=== PATIENT | male | born 1930 | race Caucasian/White ===

== ENCOUNTER 2017-12-05 08:35 | Inpatient (IN) ==
[2017-12-05] MEDS ORDERED: ONDANSETRON 4 MG/2 ML VIAL IV STA (09:50)
[2017-12-05] MEDS ORDERED: MORPHINE 2 MG/1 ML SYRINGE IV STA (09:50)
[2017-12-05] MEDS ORDERED: ASPIRIN 325 MG TABLET PO STA (09:50)
[2017-12-05 10:17] LABS: Basophils % 0.4 % (0.0-0.8); Eosinophils # 0.1 10*3/uL (0.0-0.87); Eosinophils % 1.1 % (0.00-10.9); Hematocrit 44.9 VOL% (42.0-52.0); Hemoglobin 14.4 GM/DL (14.0-18.0); Immature Granulocytes % 0.3 %; Immature Granulocytes Absolute 0.02 #; Lymphocytes # 2.1 10*3/uL (1.4-4.0); Lymphocytes % 29.6 % (21.2-54.2); Mean Corpuscular HGB Conc 32.1 GM/DL (32-36); Mean Corpuscular Hemoglobin 28 PG (27-34); Mean Corpuscular Volume 87.4 FL (87-102); Mean Platelet Volume 11.6 FL (9.6-12.0); Monocytes # 0.6 10*3/uL (0.11-0.8); Neutrophils # 4.3 10*3/uL (1.4-7.4); Neutrophils % 60.6 % (38.7-73.9); Platelet Count 161 T/CUMM (130-400); Red Blood Count 5.14 MC/CUMM (3.8-5.5); Red Cell Distribution Width 12.9 % (9.3-17.3); White Blood Count 7.1 T/CUMM (4-12)
[2017-12-05 10:23] LABS: PT Patient Result 10.7 SECS
[2017-12-05] MEDS ORDERED: ONDANSETRON 4 MG/2 ML VIAL ONE (10:32)
[2017-12-05] MEDS ORDERED: MORPHINE 2 MG/1 ML SYRINGE ONE (10:32)
[2017-12-05] MEDS ORDERED: ASPIRIN 325 MG TABLET ONE (10:33)
[2017-12-05 10:35] LABS: Alanine Aminotransferase 15 U/L (16-61); Albumin 3.6 G/DL (3.4-5.0); Alkaline Phosphatase 54 U/L (45-117); Aspartate Amino Transferase 16 U/L (0-37); Blood Urea Nitrogen 24 MG/DL (7-18); Glucose 152 MG/DL (74-106); Magnesium 2.1 MG/DL (1.8-2.4); Potassium 4.1 MMOL/L (3.5-5.1); Sodium 143 MMOL/L (136-145); Total Protein 6.6 G/DL (6.4-8.3); Troponin I Only < 0.015 NG/ML (0.00-0.045)
[2017-12-05 11:01] LABS: Apearance,Urine CLEAR (Clear); Bilirubin,Urine Negative (Negative); Blood, Urine Negative (Negative); Glucose,Urine (UA) Negative (Negative); Ketones,Urine Negative (Negative); Mucus,Urine Occasional /LPF (Occasional); Nitrite,Urine Negative (Negative); Protein,Urine Negative; RBC,Urine 1 /HPF (0-4); Urine Color Yellow (Yellow); Urine Urobilinogen < 2.0 EU/DL (0.2-1.0); WBC,Urine 9 /HPF (0-6)
[2017-12-05] MEDS ORDERED: cefTRIAXone 1,000 MG in SODIUM CHLORIDE 0.9% 100 ML IV STA (12:27)
[2017-12-05] MEDS ORDERED: cefTRIAXone 1,000 MG VIAL ONE (12:39)
[2017-12-05] MEDS ORDERED: ONDANSETRON 4 MG/2 ML VIAL IV PRN (15:28)
[2017-12-05] MEDS ORDERED: MORPHINE 2 MG/1 ML SYRINGE IV PRN (15:28)
[2017-12-05] MEDS: SODIUM CHLORIDE 0.9% 1,000 ML IV SCH (15:53)
[2017-12-05 20:47] LABS: Troponin I Only < 0.015 NG/ML (0.00-0.045)
[2017-12-05] MEDS: ENOXAPARIN 40 MG/0.4 ML SYRINGE SUBCUT SCH (21:05)
[2017-12-05] MEDS: DOCUSATE SODIUM 100 MG CAPSULE PO SCH (21:05)
[2017-12-05] MEDS: ACETAMINOPHEN 325 MG TABLET PO PRN (21:18)
[2017-12-06 05:23] LABS: Basophils % 0.4 % (0.0-0.8); Eosinophils # 0.2 10*3/uL (0.0-0.87); Eosinophils % 2.1 % (0.00-10.9); Hematocrit 40.1 VOL% (42.0-52.0); Hemoglobin 13.6 GM/DL (14.0-18.0); Immature Granulocytes % 0.3 %; Immature Granulocytes Absolute 0.02 #; Lymphocytes # 2.4 10*3/uL (1.4-4.0); Lymphocytes % 33.1 % (21.2-54.2); Mean Corpuscular HGB Conc 33.9 GM/DL (32-36); Mean Corpuscular Hemoglobin 29 PG (27-34); Mean Platelet Volume 11.5 FL (9.6-12.0); Monocytes # 0.7 10*3/uL (0.11-0.8); Monocytes % 9.2 % (1.7-12.7); Neutrophils % 54.9 % (38.7-73.9); Platelet Count 147 T/CUMM (130-400); Red Blood Count 4.72 MC/CUMM (3.8-5.5); White Blood Count 7.2 T/CUMM (4-12)
[2017-12-06 06:06] LABS: Alanine Aminotransferase < 6 U/L (16-61); Albumin 3.2 G/DL (3.4-5.0); Alkaline Phosphatase 50 U/L (45-117); Aspartate Amino Transferase 13 U/L (0-37); Blood Urea Nitrogen 24 MG/DL (7-18); Calcium 8.9 MG/DL (8.5-10.1); Cholesterol 111 MG/DL (50-200); Glucose 109 MG/DL (74-106); HDL Cholesterol 30 MG/DL (40-60); Osmolality,Calculated 292.7 MOS/KG (273-304); Potassium 4.4 MMOL/L (3.5-5.1); Sodium 145 MMOL/L (136-145); Total Protein 5.7 G/DL (6.4-8.3); Triglycerides 135 MG/DL (2-150)
[2017-12-06] MEDS: PANTOPRAZOLE 40 MG TABLET PO SCH (08:29)
[2017-12-06] MEDS: DOCUSATE SODIUM 100 MG CAPSULE PO SCH ×2 (08:29→20:56)
[2017-12-06] MEDS ORDERED: cefTRIAXone 1,000 MG in SYRINGE 1 EACH IV SCH (12:00)
[2017-12-06] MEDS: SODIUM CHLORIDE 0.9% 1,000 ML IV SCH ×2 (13:59→20:50)
[2017-12-06] MEDS ORDERED: traMADol 50 MG TABLET PO PRN (14:25)
[2017-12-06 15:27] LABS: Apearance,Urine CLEAR (Clear); Bilirubin,Urine Negative (Negative); Blood, Urine Negative (Negative); Glucose,Urine (UA) Negative (Negative); Ketones,Urine Negative (Negative); Mucus,Urine Occasional /LPF (Occasional); Nitrite,Urine Negative (Negative); Protein,Urine Negative; Urine Color Straw (Yellow); Urine Specific Gravity 1.011 (1.001-1.035); Urine Urobilinogen < 2.0 EU/DL (0.2-1.0); WBC,Urine 4 /HPF (0-6)
[2017-12-06] MEDS: MULTIVITAMIN (CENTRUM) TABLET PO SCH (15:33)
[2017-12-06] MEDS: METOPROLOL TARTRATE 25 MG TABLET PO SCH ×2 (15:34→20:56)
[2017-12-06] MEDS: CLOPIDOGREL 75 MG TABLET PO SCH (15:34)
[2017-12-06] MEDS: ATORVASTATIN 40 MG TABLET PO SCH (15:34)
[2017-12-06] MEDS: ASPIRIN EC 81 MG TABLET PO SCH (15:34)
[2017-12-06] MEDS ORDERED: TAMSULOSIN 0.4 MG CAPSULE PO SCH (18:00)
[2017-12-06] MEDS: ACETAMINOPHEN 325 MG TABLET PO PRN (20:55)
[2017-12-06] MEDS: ENOXAPARIN 40 MG/0.4 ML SYRINGE SUBCUT SCH (20:55)
[2017-12-07 06:11] LABS: Basophils % 0.4 % (0.0-0.8); Eosinophils # 0.2 10*3/uL (0.0-0.87); Eosinophils % 2.7 % (0.00-10.9); Hematocrit 39.8 VOL% (42.0-52.0); Hemoglobin 12.8 GM/DL (14.0-18.0); Immature Granulocytes % 0.3 %; Immature Granulocytes Absolute 0.02 #; Lymphocytes # 2.6 10*3/uL (1.4-4.0); Lymphocytes % 34.8 % (21.2-54.2); Mean Corpuscular HGB Conc 32.2 GM/DL (32-36); Mean Corpuscular Hemoglobin 28 PG (27-34); Mean Platelet Volume 11.6 FL (9.6-12.0); Monocytes # 0.7 10*3/uL (0.11-0.8); Neutrophils % 52.8 % (38.7-73.9); Platelet Count 150 T/CUMM (130-400); Red Blood Count 4.63 MC/CUMM (3.8-5.5); Red Cell Distribution Width 13.1 % (9.3-17.3); White Blood Count 7.5 T/CUMM (4-12)
[2017-12-07 06:28] LABS: Magnesium 2.3 MG/DL (1.8-2.4); Potassium 4.2 MMOL/L (3.5-5.1)
[2017-12-07 08:19] VITALS: BP 166/85
[2017-12-07] MEDS: DOCUSATE SODIUM 100 MG CAPSULE PO SCH (08:53)
[2017-12-07] MEDS: CLOPIDOGREL 75 MG TABLET PO SCH (08:53)
[2017-12-07] MEDS: METOPROLOL TARTRATE 25 MG TABLET PO SCH (08:53)
[2017-12-07] MEDS: MULTIVITAMIN (CENTRUM) TABLET PO SCH (08:53)
[2017-12-07] MEDS: ATORVASTATIN 40 MG TABLET PO SCH (08:53)
[2017-12-07] MEDS: PANTOPRAZOLE 40 MG TABLET PO SCH (08:53)
[2017-12-07] MEDS: ASPIRIN EC 81 MG TABLET PO SCH (08:53)
[2017-12-07] MEDS ORDERED: POLYETHYLENE GLYCOL POWDER 17 GM PACK PO SCH (09:00)
[2017-12-08 04:16] LABS: Free PSA/PSA Ratio 0.2 ratio
== END 2017-12-07 09:40 | disposition home or self-care (01) | DRG 641 ==
LOC: N.ED 08:35 → N.EDINP 12:29 → N.2E 15:27
PROVIDERS: ADMIT Family Medicine; ATTEND Family Medicine

== ENCOUNTER 2018-01-10 07:59 | Inpatient (IN) ==
[2018-01-10] MEDS ORDERED: SODIUM CHLORIDE 0.9% 500 ML IV STA (09:10)
[2018-01-10] MEDS ORDERED: ONDANSETRON 4 MG/2 ML VIAL IV STA (09:10)
[2018-01-10] MEDS ORDERED: PANTOPRAZOLE 40 MG VIAL IV STA (09:10)
[2018-01-10] MEDS ORDERED: ONDANSETRON 4 MG/2 ML VIAL ONE ×2 (09:26→12:45)
[2018-01-10] MEDS ORDERED: PANTOPRAZOLE 40 MG VIAL IV ONE (09:26)
[2018-01-10 09:31] LABS: Basophils % 0.2 % (0.0-0.8); Eosinophils % 0.3 % (0.00-10.9); Hematocrit 39.6 VOL% (42.0-52.0); Hemoglobin 13.1 GM/DL (14.0-18.0); Immature Granulocytes % 0.6 %; Immature Granulocytes Absolute 0.07 #; Lymphocytes # 2.3 10*3/uL (1.4-4.0); Lymphocytes % 18.6 % (21.2-54.2); Mean Corpuscular HGB Conc 33.1 GM/DL (32-36); Mean Corpuscular Hemoglobin 28 PG (27-34); Mean Corpuscular Volume 83.9 FL (87-102); Mean Platelet Volume 11.5 FL (9.6-12.0); Monocytes # 0.8 10*3/uL (0.11-0.8); Monocytes % 6.7 % (1.7-12.7); Neutrophils # 8.9 10*3/uL (1.4-7.4); Neutrophils % 73.6 % (38.7-73.9); Platelet Count 178 T/CUMM (130-400); Red Blood Count 4.72 MC/CUMM (3.8-5.5); Red Cell Distribution Width 13.9 % (9.3-17.3); White Blood Count 12.1 T/CUMM (4-12)
[2018-01-10 09:48] LABS: Apearance,Urine Slightly Hazy (Clear); Bacteria,Urine Few /HPF (Few); Bilirubin,Urine Negative (Negative); Blood, Urine Moderate mg/dL (Negative); Glucose,Urine (UA) Negative (Negative); Ketones,Urine Negative (Negative); Mucus,Urine Occasional /LPF (Occasional); Nitrite,Urine Negative (Negative); Protein,Urine Negative; RBC,Urine 101 /HPF (0-4); Urine Color Yellow (Yellow); Urine Specific Gravity 1.012 (1.001-1.035); Urine Urobilinogen < 2.0 EU/DL (0.2-1.0); WBC,Urine 26 /HPF (0-6)
[2018-01-10 09:53] LABS: Lactic Acid 1.5 MMOL/L (0.4-2.0)
[2018-01-10 09:56] LABS: Alanine Aminotransferase 17 U/L (16-61); Albumin 2.5 G/DL (3.4-5.0); Alkaline Phosphatase 101 U/L (45-117); Amylase 51 U/L (25-115); Aspartate Amino Transferase 19 U/L (0-37); Blood Urea Nitrogen 46 MG/DL (7-18); Calcium 8.8 MG/DL (8.5-10.1); Glucose 122 MG/DL (74-106); Osmolality,Calculated 291.4 MOS/KG (273-304); Potassium 4.3 MMOL/L (3.5-5.1); Sodium 140 MMOL/L (136-145); Total Protein 5.8 G/DL (6.4-8.3); Troponin I Only < 0.015 NG/ML (0.00-0.045)
[2018-01-10] MEDS ORDERED: LEVOFLOXACIN INJ 750 MG in PREMIX 1 EACH IV STA (10:15)
[2018-01-10] MEDS ORDERED: ENOXAPARIN 80 MG/0.8 ML SYRINGE SUBCUT STA (10:40)
[2018-01-10] MEDS ORDERED: LEVOFLOXACIN INJ 150 ML IV ONE (11:22)
[2018-01-10] MEDS ORDERED: ENOXAPARIN 80 MG/0.8 ML SYRINGE SUBCUT ONE (11:22)
[2018-01-10] MEDS ORDERED: MORPHINE 2 MG/1 ML SYRINGE ONE (12:44)
[2018-01-10] MEDS ORDERED: ONDANSETRON 4 MG/2 ML VIAL IV ONE (13:16)
[2018-01-10] MEDS ORDERED: MORPHINE 2 MG/1 ML SYRINGE IV STA (13:16)
[2018-01-10] MEDS ORDERED: ENOXAPARIN 80 MG/0.8 ML SYRINGE SUBCUT SCH (15:40)
[2018-01-10] MEDS: LEVOFLOXACIN INJ 750 MG in PREMIX 1 EACH IV SCH (16:56)
[2018-01-10] MEDS ORDERED: HEPARIN 5,000 UNIT/1 ML VIAL IV ONE (17:04)
[2018-01-10] MEDS: SODIUM CHLORIDE 0.9% 1,000 ML IV SCH (17:19)
[2018-01-10] MEDS ORDERED: HEPARIN DRIP 25,000 UNITS/500 ML PREMIX IV SCH (17:30)
[2018-01-10] MEDS: ONDANSETRON 4 MG/2 ML VIAL IV PRN ×2 (19:51→23:19)
[2018-01-11] MEDS: SODIUM CHLORIDE 0.9% 1,000 ML IV SCH ×4 (03:58→23:43)
[2018-01-11] MEDS: ONDANSETRON 4 MG/2 ML VIAL IV PRN ×3 (04:03→22:50)
[2018-01-11 04:47] LABS: Basophils % 0.4 % (0.0-0.8); Eosinophils # 0.1 10*3/uL (0.0-0.87); Eosinophils % 0.6 % (0.00-10.9); Hematocrit 35.6 VOL% (42.0-52.0); Hemoglobin 11.9 GM/DL (14.0-18.0); Immature Granulocytes % 0.4 %; Immature Granulocytes Absolute 0.04 #; Lymphocytes # 2.4 10*3/uL (1.4-4.0); Lymphocytes % 21.4 % (21.2-54.2); Mean Corpuscular HGB Conc 33.4 GM/DL (32-36); Mean Corpuscular Hemoglobin 28 PG (27-34); Mean Platelet Volume 11.5 FL (9.6-12.0); Monocytes # 0.9 10*3/uL (0.11-0.8); Monocytes % 8.1 % (1.7-12.7); Neutrophils # 7.8 10*3/uL (1.4-7.4); Neutrophils % 69.1 % (38.7-73.9); Platelet Count 156 T/CUMM (130-400); Red Blood Count 4.29 MC/CUMM (3.8-5.5); Red Cell Distribution Width 14.4 % (9.3-17.3); White Blood Count 11.3 T/CUMM (4-12)
[2018-01-11] MEDS: PANTOPRAZOLE 40 MG TABLET PO SCH (09:10)
[2018-01-11] MEDS: APIXABAN 5 MG TABLET PO SCH ×2 (15:02→21:21)
[2018-01-11] MEDS: hydrALAZINE 20 MG/1 ML VIAL IV PRN ×2 (15:43→21:21)
[2018-01-11] MEDS: LEVOFLOXACIN INJ 750 MG in PREMIX 1 EACH IV SCH (15:46)
[2018-01-11] MEDS ORDERED: NITROGLYCERIN SL 0.4 MG TABLET SL PRN (17:12)
[2018-01-11] MEDS ORDERED: MORPHINE 2 MG/1 ML SYRINGE IV PRN (17:12)
[2018-01-11] MEDS ORDERED: ASPIRIN CHEW 81 MG TABLET PO ONE (17:12)
[2018-01-11 17:29] LABS: Basophils % 0.2 % (0.0-0.8); Eosinophils % 0.3 % (0.00-10.9); Hematocrit 37.3 VOL% (42.0-52.0); Hemoglobin 12.4 GM/DL (14.0-18.0); Immature Granulocytes % 0.5 %; Immature Granulocytes Absolute 0.06 #; Lymphocytes # 3.2 10*3/uL (1.4-4.0); Lymphocytes % 25.1 % (21.2-54.2); Mean Corpuscular HGB Conc 33.2 GM/DL (32-36); Mean Corpuscular Hemoglobin 28 PG (27-34); Mean Platelet Volume 11.5 FL (9.6-12.0); Monocytes # 0.9 10*3/uL (0.11-0.8); Monocytes % 7.3 % (1.7-12.7); Neutrophils # 8.4 10*3/uL (1.4-7.4); Neutrophils % 66.6 % (38.7-73.9); Platelet Count 180 T/CUMM (130-400); Red Blood Count 4.44 MC/CUMM (3.8-5.5); Red Cell Distribution Width 14.4 % (9.3-17.3); White Blood Count 12.6 T/CUMM (4-12)
[2018-01-11] MEDS: HYDROmorphone 2 MG/1 ML VIAL IV PRN ×2 (17:40→22:41)
[2018-01-11 17:54] LABS: Albumin 2.2 G/DL (3.4-5.0); Bilirubin,Total 0.6 MG/DL (0.2-1.0); Calcium 7.8 MG/DL (8.5-10.1); Osmolality,Calculated 289.7 MOS/KG (273-304); Potassium 3.8 MMOL/L (3.5-5.1); Total Protein 5.1 G/DL (6.4-8.3)
[2018-01-11] MEDS ORDERED: APIXABAN 5 MG TABLET PO SCH ×2 (21:00)
[2018-01-11] MEDS: ALUMINUM/MAGNES/SIMETH MAX STR 30 ML UDCUP PO PRN (21:21)
[2018-01-12] MEDS: HYDROmorphone 2 MG/1 ML VIAL IV PRN ×2 (03:28→17:04)
[2018-01-12] MEDS: ONDANSETRON 4 MG/2 ML VIAL IV PRN ×3 (03:28→17:01)
[2018-01-12] MEDS: hydrALAZINE 20 MG/1 ML VIAL IV PRN (05:05)
[2018-01-12] MEDS: SODIUM CHLORIDE 0.9% 1,000 ML IV SCH ×3 (05:05→20:08)
[2018-01-12 05:47] LABS: Basophils % 0.1 % (0.0-0.8); Eosinophils % 0.2 % (0.00-10.9); Hematocrit 40.5 VOL% (42.0-52.0); Hemoglobin 13.3 GM/DL (14.0-18.0); Immature Granulocytes % 1.1 %; Immature Granulocytes Absolute 0.13 #; Lymphocytes % 17.4 % (21.2-54.2); Mean Corpuscular HGB Conc 32.8 GM/DL (32-36); Mean Corpuscular Hemoglobin 28 PG (27-34); Mean Corpuscular Volume 84.7 FL (87-102); Mean Platelet Volume 11.5 FL (9.6-12.0); Monocytes # 0.9 10*3/uL (0.11-0.8); Monocytes % 8.1 % (1.7-12.7); Neutrophils # 8.4 10*3/uL (1.4-7.4); Neutrophils % 73.1 % (38.7-73.9); Platelet Count 189 T/CUMM (130-400); Red Blood Count 4.78 MC/CUMM (3.8-5.5); Red Cell Distribution Width 14.5 % (9.3-17.3); White Blood Count 11.5 T/CUMM (4-12)
[2018-01-12 06:21] LABS: Calcium 8.5 MG/DL (8.5-10.1); Osmolality,Calculated 287.3 MOS/KG (273-304); Potassium 4.1 MMOL/L (3.5-5.1)
[2018-01-12] MEDS: ALUMINUM/MAGNES/SIMETH MAX STR 30 ML UDCUP PO PRN ×2 (09:29→16:03)
[2018-01-12] MEDS: PANTOPRAZOLE 40 MG TABLET PO SCH (09:32)
[2018-01-12] MEDS: APIXABAN 5 MG TABLET PO SCH ×2 (09:32→21:09)
[2018-01-12] MEDS ORDERED: POLYETHYLENE GLYCOL POWDER 17 GM PACK PO PRN (09:39)
[2018-01-12] MEDS ORDERED: METOPROLOL TARTRATE 25 MG TABLET PO SCH (09:39)
[2018-01-12] MEDS: amLODIPine 5 MG TABLET PO SCH (11:26)
[2018-01-12] MEDS: CETIRIZINE 10 MG TABLET PO SCH (11:27)
[2018-01-12] MEDS: ROSUVASTATIN 20 MG TABLET PO SCH (11:27)
[2018-01-12] MEDS: traMADol 50 MG TABLET PO PRN (15:53)
[2018-01-12] MEDS: LEVOFLOXACIN INJ 750 MG in PREMIX 1 EACH IV SCH (15:56)
[2018-01-12] MEDS: TAMSULOSIN 0.4 MG CAPSULE PO SCH (18:50)
[2018-01-13] MEDS: ROSUVASTATIN 20 MG TABLET PO SCH (08:32)
[2018-01-13] MEDS: PANTOPRAZOLE 40 MG TABLET PO SCH (08:32)
[2018-01-13] MEDS: amLODIPine 5 MG TABLET PO SCH (08:33)
[2018-01-13] MEDS: CETIRIZINE 10 MG TABLET PO SCH (08:33)
[2018-01-13] MEDS: APIXABAN 5 MG TABLET PO SCH ×2 (08:33→22:07)
[2018-01-13] MEDS ORDERED: NITROGLYCERIN SL 0.4 MG TABLET SL PRN (11:33)
[2018-01-13] MEDS: SODIUM CHLORIDE 0.9% 1,000 ML IV SCH (12:17)
[2018-01-13] MEDS: TAMSULOSIN 0.4 MG CAPSULE PO SCH ×3 (13:07→22:07)
[2018-01-13] MEDS: DUTASTERIDE 0.5 MG CAPSULE PO SCH (13:07)
[2018-01-13] MEDS: MEROPENEM 1,000 MG in SYRINGE 1 EACH IV SCH (18:12)
[2018-01-13] MEDS: METOPROLOL TARTRATE 25 MG TABLET PO SCH (22:07)
[2018-01-14] MEDS: traMADol 50 MG TABLET PO PRN (01:26)
[2018-01-14] MEDS: SODIUM CHLORIDE 0.9% 1,000 ML IV SCH ×4 (04:20→21:46)
[2018-01-14 04:48] LABS: Basophils % 0.4 % (0.0-0.8); Eosinophils # 0.4 10*3/uL (0.0-0.87); Eosinophils % 4.2 % (0.00-10.9); Hematocrit 34.1 VOL% (42.0-52.0); Hemoglobin 11.2 GM/DL (14.0-18.0); Immature Granulocytes % 0.7 %; Immature Granulocytes Absolute 0.07 #; Lymphocytes # 2.4 10*3/uL (1.4-4.0); Mean Corpuscular HGB Conc 32.8 GM/DL (32-36); Mean Corpuscular Hemoglobin 28 PG (27-34); Mean Corpuscular Volume 85.3 FL (87-102); Mean Platelet Volume 11.6 FL (9.6-12.0); Monocytes # 0.8 10*3/uL (0.11-0.8); Monocytes % 7.9 % (1.7-12.7); Neutrophils # 6.2 10*3/uL (1.4-7.4); Neutrophils % 62.8 % (38.7-73.9); Platelet Count 175 T/CUMM (130-400); Red Cell Distribution Width 14.9 % (9.3-17.3); White Blood Count 9.9 T/CUMM (4-12)
[2018-01-14 05:27] LABS: Risk Ratio 4.19; VLDL CHOLESTEROL 16.4 MG/DL
[2018-01-14 05:55] LABS: Calcium 7.7 MG/DL (8.5-10.1); Osmolality,Calculated 285.3 MOS/KG (273-304); Potassium 4.4 MMOL/L (3.5-5.1)
[2018-01-14] MEDS: CETIRIZINE 10 MG TABLET PO SCH (08:46)
[2018-01-14] MEDS: DUTASTERIDE 0.5 MG CAPSULE PO SCH (08:46)
[2018-01-14] MEDS: PANTOPRAZOLE 40 MG TABLET PO SCH (08:46)
[2018-01-14] MEDS: TAMSULOSIN 0.4 MG CAPSULE PO SCH ×3 (08:46→21:45)
[2018-01-14] MEDS: APIXABAN 5 MG TABLET PO SCH ×2 (08:46→21:44)
[2018-01-14] MEDS: ROSUVASTATIN 20 MG TABLET PO SCH (08:46)
[2018-01-14] MEDS: METOPROLOL TARTRATE 25 MG TABLET PO SCH ×2 (08:46→21:44)
[2018-01-14] MEDS: ASPIRIN EC 81 MG TABLET PO SCH (08:47)
[2018-01-14] MEDS ORDERED: LEVOFLOXACIN INJ 750 MG in PREMIX 1 EACH IV SCH (15:00)
[2018-01-14] MEDS: MEROPENEM 1,000 MG in SYRINGE 1 EACH IV SCH (15:04)
[2018-01-15] MEDS: MEROPENEM 1,000 MG in SYRINGE 1 EACH IV SCH ×2 (01:16→13:42)
[2018-01-15 06:31] LABS: Basophils # 0.1 10*3/uL (0.0-0.2); Basophils % 0.5 % (0.0-0.8); Eosinophils # 0.7 10*3/uL (0.0-0.87); Eosinophils % 6.5 % (0.00-10.9); Hematocrit 34.6 VOL% (42.0-52.0); Hemoglobin 11.2 GM/DL (14.0-18.0); Immature Granulocytes % 0.8 %; Immature Granulocytes Absolute 0.09 #; Lymphocytes % 18.9 % (21.2-54.2); Mean Corpuscular HGB Conc 32.4 GM/DL (32-36); Mean Corpuscular Hemoglobin 28 PG (27-34); Mean Corpuscular Volume 86.7 FL (87-102); Mean Platelet Volume 11.3 FL (9.6-12.0); Monocytes # 0.8 10*3/uL (0.11-0.8); Monocytes % 7.6 % (1.7-12.7); Neutrophils # 7.1 10*3/uL (1.4-7.4); Neutrophils % 65.7 % (38.7-73.9); Platelet Count 161 T/CUMM (130-400); Red Blood Count 3.99 MC/CUMM (3.8-5.5); White Blood Count 10.8 T/CUMM (4-12)
[2018-01-15 06:58] LABS: Calcium 7.3 MG/DL (8.5-10.1); Osmolality,Calculated 288.1 MOS/KG (273-304); Potassium 3.9 MMOL/L (3.5-5.1)
[2018-01-15] MEDS: APIXABAN 5 MG TABLET PO SCH ×2 (09:20→21:14)
[2018-01-15] MEDS: DUTASTERIDE 0.5 MG CAPSULE PO SCH (09:20)
[2018-01-15] MEDS: ROSUVASTATIN 20 MG TABLET PO SCH (09:20)
[2018-01-15] MEDS: ASPIRIN EC 81 MG TABLET PO SCH (09:21)
[2018-01-15] MEDS: CETIRIZINE 10 MG TABLET PO SCH (09:21)
[2018-01-15] MEDS: PANTOPRAZOLE 40 MG TABLET PO SCH (09:21)
[2018-01-15] MEDS: METOPROLOL TARTRATE 25 MG TABLET PO SCH ×2 (09:21→21:14)
[2018-01-15] MEDS: TAMSULOSIN 0.4 MG CAPSULE PO SCH ×3 (09:21→21:15)
[2018-01-15] MEDS: SODIUM CHLORIDE 0.9% 1,000 ML IV SCH (13:42)
[2018-01-16] MEDS: SODIUM CHLORIDE 0.9% 1,000 ML IV SCH ×2 (01:36→14:38)
[2018-01-16] MEDS: MEROPENEM 1,000 MG in SYRINGE 1 EACH IV SCH ×2 (02:53→14:39)
[2018-01-16 07:07] LABS: Basophils % 0.4 % (0.0-0.8); Eosinophils # 0.5 10*3/uL (0.0-0.87); Eosinophils % 5.4 % (0.00-10.9); Hematocrit 31.1 VOL% (42.0-52.0); Hemoglobin 10.1 GM/DL (14.0-18.0); Immature Granulocytes % 0.8 %; Immature Granulocytes Absolute 0.08 #; Lymphocytes % 20.7 % (21.2-54.2); Mean Corpuscular HGB Conc 32.5 GM/DL (32-36); Mean Corpuscular Hemoglobin 28 PG (27-34); Mean Corpuscular Volume 86.1 FL (87-102); Mean Platelet Volume 11.5 FL (9.6-12.0); Monocytes # 0.8 10*3/uL (0.11-0.8); Monocytes % 8.4 % (1.7-12.7); Neutrophils # 6.3 10*3/uL (1.4-7.4); Neutrophils % 64.3 % (38.7-73.9); Platelet Count 160 T/CUMM (130-400); Red Blood Count 3.61 MC/CUMM (3.8-5.5); Red Cell Distribution Width 15.1 % (9.3-17.3); White Blood Count 9.8 T/CUMM (4-12)
[2018-01-16 07:37] LABS: Calcium 7.1 MG/DL (8.5-10.1); Osmolality,Calculated 291.7 MOS/KG (273-304); Potassium 3.8 MMOL/L (3.5-5.1)
[2018-01-16] MEDS: METOPROLOL TARTRATE 25 MG TABLET PO SCH ×2 (08:31→21:10)
[2018-01-16] MEDS: ROSUVASTATIN 20 MG TABLET PO SCH (08:31)
[2018-01-16] MEDS: CETIRIZINE 10 MG TABLET PO SCH (08:31)
[2018-01-16] MEDS: DUTASTERIDE 0.5 MG CAPSULE PO SCH (08:31)
[2018-01-16] MEDS: APIXABAN 5 MG TABLET PO SCH ×2 (08:32→21:10)
[2018-01-16] MEDS: PANTOPRAZOLE 40 MG TABLET PO SCH (08:32)
[2018-01-16] MEDS: TAMSULOSIN 0.4 MG CAPSULE PO SCH ×3 (08:32→21:10)
[2018-01-16] MEDS: ASPIRIN EC 81 MG TABLET PO SCH (08:32)
[2018-01-16] MEDS ORDERED: FOSFOMYCIN 3 GM PACK PO ONE (14:46)
[2018-01-17] MEDS: ONDANSETRON 4 MG/2 ML VIAL IV PRN (01:41)
[2018-01-17] MEDS: SODIUM CHLORIDE 0.9% 1,000 ML IV SCH ×2 (03:55→17:14)
[2018-01-17 04:35] LABS: Basophils % 0.3 % (0.0-0.8); Eosinophils # 0.5 10*3/uL (0.0-0.87); Eosinophils % 5.8 % (0.00-10.9); Hematocrit 28.6 VOL% (42.0-52.0); Hemoglobin 9.4 GM/DL (14.0-18.0); Immature Granulocytes % 0.6 %; Immature Granulocytes Absolute 0.05 #; Lymphocytes # 1.7 10*3/uL (1.4-4.0); Lymphocytes % 18.7 % (21.2-54.2); Mean Corpuscular HGB Conc 32.9 GM/DL (32-36); Mean Corpuscular Hemoglobin 29 PG (27-34); Mean Corpuscular Volume 87.2 FL (87-102); Mean Platelet Volume 11.5 FL (9.6-12.0); Monocytes # 0.7 10*3/uL (0.11-0.8); Monocytes % 8.1 % (1.7-12.7); Neutrophils # 5.9 10*3/uL (1.4-7.4); Neutrophils % 66.5 % (38.7-73.9); Platelet Count 162 T/CUMM (130-400); Red Blood Count 3.28 MC/CUMM (3.8-5.5); Red Cell Distribution Width 15.3 % (9.3-17.3); White Blood Count 8.9 T/CUMM (4-12)
[2018-01-17 04:56] LABS: Calcium 6.7 MG/DL (8.5-10.1); Osmolality,Calculated 295.4 MOS/KG (273-304)
[2018-01-17] MEDS: METOPROLOL TARTRATE 25 MG TABLET PO SCH ×2 (08:35→21:03)
[2018-01-17] MEDS: TAMSULOSIN 0.4 MG CAPSULE PO SCH ×3 (08:35→21:02)
[2018-01-17] MEDS: PANTOPRAZOLE 40 MG TABLET PO SCH (08:35)
[2018-01-17] MEDS: DUTASTERIDE 0.5 MG CAPSULE PO SCH (08:35)
[2018-01-17] MEDS: ROSUVASTATIN 20 MG TABLET PO SCH (08:35)
[2018-01-17] MEDS: APIXABAN 2.5 MG TABLET PO SCH ×2 (08:36→20:59)
[2018-01-17] MEDS: CETIRIZINE 10 MG TABLET PO SCH (09:15)
[2018-01-17] MEDS: HYDROmorphone 2 MG/1 ML VIAL IV PRN (10:36)
[2018-01-18 04:49] LABS: Basophils % 0.2 % (0.0-0.8); Eosinophils # 0.5 10*3/uL (0.0-0.87); Hematocrit 28.2 VOL% (42.0-52.0); Hemoglobin 9.5 GM/DL (14.0-18.0); Immature Granulocytes % 0.5 %; Immature Granulocytes Absolute 0.04 #; Lymphocytes # 2.3 10*3/uL (1.4-4.0); Mean Corpuscular HGB Conc 33.7 GM/DL (32-36); Mean Corpuscular Hemoglobin 29 PG (27-34); Mean Corpuscular Volume 84.9 FL (87-102); Mean Platelet Volume 11.9 FL (9.6-12.0); Monocytes # 0.8 10*3/uL (0.11-0.8); Monocytes % 9.3 % (1.7-12.7); Platelet Count 175 T/CUMM (130-400); Red Blood Count 3.32 MC/CUMM (3.8-5.5); Red Cell Distribution Width 15.1 % (9.3-17.3); White Blood Count 8.7 T/CUMM (4-12)
[2018-01-18 04:57] LABS: Calcium 6.9 MG/DL (8.5-10.1); Osmolality,Calculated 282.1 MOS/KG (273-304); Potassium 3.8 MMOL/L (3.5-5.1)
[2018-01-18] MEDS: SODIUM CHLORIDE 0.9% 1,000 ML IV SCH ×3 (05:40→18:36)
[2018-01-18] MEDS: HYDROmorphone 2 MG/1 ML VIAL IV PRN (05:41)
[2018-01-18] MEDS: ONDANSETRON 4 MG/2 ML VIAL IV PRN (05:51)
[2018-01-18] MEDS: DUTASTERIDE 0.5 MG CAPSULE PO SCH (08:58)
[2018-01-18] MEDS: ROSUVASTATIN 20 MG TABLET PO SCH (08:58)
[2018-01-18] MEDS: CETIRIZINE 10 MG TABLET PO SCH (08:58)
[2018-01-18] MEDS: METOPROLOL TARTRATE 25 MG TABLET PO SCH ×2 (08:58→21:14)
[2018-01-18] MEDS: PANTOPRAZOLE 40 MG TABLET PO SCH (08:58)
[2018-01-18] MEDS: TAMSULOSIN 0.4 MG CAPSULE PO SCH ×3 (08:59→21:14)
[2018-01-18] MEDS ORDERED: APIXABAN 2.5 MG TABLET PO SCH (09:00)
[2018-01-18] MEDS: APIXABAN 2.5 MG TABLET PO SCH (14:50)
[2018-01-18 15:19] LABS: Hematocrit 29.5 VOL% (42.0-52.0); Hemoglobin 9.6 GM/DL (14.0-18.0)
[2018-01-18 19:59] LABS: Hematocrit 29.3 VOL% (42.0-52.0); Hemoglobin 9.5 GM/DL (14.0-18.0)
[2018-01-19 06:18] LABS: Basophils % 0.3 % (0.0-0.8); Eosinophils # 0.4 10*3/uL (0.0-0.87); Eosinophils % 5.4 % (0.00-10.9); Hematocrit 26.7 VOL% (42.0-52.0); Hemoglobin 8.9 GM/DL (14.0-18.0); Immature Granulocytes % 0.4 %; Immature Granulocytes Absolute 0.03 #; Lymphocytes # 2.1 10*3/uL (1.4-4.0); Mean Corpuscular HGB Conc 33.3 GM/DL (32-36); Mean Corpuscular Hemoglobin 28 PG (27-34); Mean Corpuscular Volume 84.8 FL (87-102); Mean Platelet Volume 11.9 FL (9.6-12.0); Monocytes # 0.7 10*3/uL (0.11-0.8); Monocytes % 8.8 % (1.7-12.7); Neutrophils # 4.3 10*3/uL (1.4-7.4); Neutrophils % 57.1 % (38.7-73.9); Platelet Count 154 T/CUMM (130-400); Red Blood Count 3.15 MC/CUMM (3.8-5.5); Red Cell Distribution Width 15.2 % (9.3-17.3); White Blood Count 7.5 T/CUMM (4-12)
[2018-01-19 06:43] LABS: Albumin 1.6 G/DL (3.4-5.0); Bilirubin,Total 0.9 MG/DL (0.2-1.0); Calcium 5.9 MG/DL (8.5-10.1); Osmolality,Calculated 288.6 MOS/KG (273-304); Potassium 3.3 MMOL/L (3.5-5.1); Total Protein 3.5 G/DL (6.4-8.3)
[2018-01-19] MEDS: CETIRIZINE 10 MG TABLET PO SCH (08:41)
[2018-01-19] MEDS: METOPROLOL TARTRATE 25 MG TABLET PO SCH ×2 (08:41→21:04)
[2018-01-19] MEDS: TAMSULOSIN 0.4 MG CAPSULE PO SCH ×3 (08:41→21:04)
[2018-01-19] MEDS: ROSUVASTATIN 20 MG TABLET PO SCH (08:41)
[2018-01-19] MEDS: PANTOPRAZOLE 40 MG TABLET PO SCH (08:41)
[2018-01-19] MEDS: DUTASTERIDE 0.5 MG CAPSULE PO SCH (08:41)
[2018-01-19] MEDS ORDERED: POTASSIUM CHLORIDE INJ 20 MEQ in SODIUM CHLORIDE 0.9% 1,000 ML IV SCH (11:37)
[2018-01-19] MEDS: SODIUM CHLORIDE 0.9% 1,000 ML IV SCH (13:23)
[2018-01-19] MEDS: SODIUM CHLOR 0.9% KCL 20 MEQ 20 MEQ/1,000 ML BAG IV SCH ×2 (13:23→18:55)
[2018-01-19] MEDS: HYDROmorphone 2 MG/1 ML VIAL IV PRN ×2 (15:48→21:05)
[2018-01-19] MEDS: ONDANSETRON 4 MG/2 ML VIAL IV PRN (23:32)
[2018-01-20 05:29] LABS: Basophils % 0.2 % (0.0-0.8); Eosinophils # 0.4 10*3/uL (0.0-0.87); Eosinophils % 4.7 % (0.00-10.9); Hematocrit 27.5 VOL% (42.0-52.0); Immature Granulocytes % 0.5 %; Immature Granulocytes Absolute 0.04 #; Lymphocytes # 2.1 10*3/uL (1.4-4.0); Lymphocytes % 23.5 % (21.2-54.2); Mean Corpuscular HGB Conc 32.7 GM/DL (32-36); Mean Corpuscular Hemoglobin 29 PG (27-34); Mean Platelet Volume 11.8 FL (9.6-12.0); Monocytes # 0.7 10*3/uL (0.11-0.8); Monocytes % 8.2 % (1.7-12.7); Neutrophils # 5.6 10*3/uL (1.4-7.4); Neutrophils % 62.9 % (38.7-73.9); Platelet Count 184 T/CUMM (130-400); Red Blood Count 3.16 MC/CUMM (3.8-5.5); Red Cell Distribution Width 14.9 % (9.3-17.3); White Blood Count 8.9 T/CUMM (4-12)
[2018-01-20 05:47] LABS: Calcium 7.4 MG/DL (8.5-10.1); Osmolality,Calculated 280.3 MOS/KG (273-304); Potassium 4.2 MMOL/L (3.5-5.1)
[2018-01-20] MEDS: SODIUM CHLOR 0.9% KCL 20 MEQ 20 MEQ/1,000 ML BAG IV SCH ×2 (09:02→23:12)
[2018-01-20] MEDS: CETIRIZINE 10 MG TABLET PO SCH (10:06)
[2018-01-20] MEDS: METOPROLOL TARTRATE 25 MG TABLET PO SCH ×2 (10:06→21:06)
[2018-01-20] MEDS: ROSUVASTATIN 20 MG TABLET PO SCH (10:06)
[2018-01-20] MEDS: DUTASTERIDE 0.5 MG CAPSULE PO SCH (10:06)
[2018-01-20] MEDS: TAMSULOSIN 0.4 MG CAPSULE PO SCH ×3 (10:07→21:06)
[2018-01-20] MEDS: PANTOPRAZOLE 40 MG TABLET PO SCH (10:07)
[2018-01-20] MEDS: APIXABAN 2.5 MG TABLET PO SCH ×2 (10:07→21:06)
[2018-01-21] MEDS: PANTOPRAZOLE 40 MG TABLET PO SCH (08:52)
[2018-01-21] MEDS: METOPROLOL TARTRATE 25 MG TABLET PO SCH (08:52)
[2018-01-21] MEDS: ROSUVASTATIN 20 MG TABLET PO SCH (08:52)
[2018-01-21] MEDS: DUTASTERIDE 0.5 MG CAPSULE PO SCH (08:52)
[2018-01-21] MEDS: CETIRIZINE 10 MG TABLET PO SCH (08:52)
[2018-01-21] MEDS: APIXABAN 2.5 MG TABLET PO SCH (08:52)
[2018-01-21] MEDS: TAMSULOSIN 0.4 MG CAPSULE PO SCH (08:52)
[2018-01-21] MEDS: SODIUM CHLOR 0.9% KCL 20 MEQ 20 MEQ/1,000 ML BAG IV SCH (10:32)
[2018-01-21 12:12] VITALS: BP 125/64
== END 2018-01-21 13:00 | disposition home or self-care (01) | DRG 176 ==
LOC: N.ED 07:59 → N.EDINP 11:54 → N.ICU 15:39 → N.TELES 01-12 14:37
PROVIDERS: ADMIT Family Medicine; ATTEND Family Medicine

== ENCOUNTER 2018-05-01 11:22 | Inpatient (IN) ==
[2018-05-07 08:52] VITALS: BP 123/69
== END 2018-05-07 09:49 | disposition home or self-care (01) | DRG 700 ==
LOC: N.2E 12:42
PROVIDERS: ADMIT Family Medicine; ATTEND Family Medicine